=== PATIENT | female | born 1950 | race Hispanic/Latino ===

== ENCOUNTER 2018-08-04 22:52 | Emergency (ER) | payer MEDICARE ==
[2018-08-04] MEDS ORDERED: Sodium Chloride 0.9% 1,000 ML IV STA (23:39)
[2018-08-05 00:11] LABS: VENOUS BLOOD GAS BASE EXCESS 2.7 mmol/L (0.0-2.0); VENOUS BLOOD GAS PCO2 44 mmHg (40-60); VENOUS BLOOD GAS PO2 26 mm/Hg (30-55); VENOUS BLOOD PH 7.41 (7.32-7.43)
[2018-08-05 00:18] LABS: BASO # 0.1 K/uL (0.0-0.2); BASO % 1.3 % (0.0-2.0); EOS # 0.2 K/uL (0.0-0.7); EOS % 2.2 % (0.0-4.0); HEMOGLOBIN 13.1 g/dL (12.0-16.0); LYMPH # 1.7 K/uL (1.0-4.3); LYMPH % 14.9 % (20.0-40.0); MEAN CELL VOLUME 91.3 fl (81.0-99.0); MEAN CORPUSCULAR HEMOGLOBIN 30.5 pg (27.0-31.0); MEAN CORPUSCULAR HGB CONC 33.4 g/dL (33.0-37.0); MEAN PLATELET VOLUME 8.6 fl (7.2-11.7); MONO # 0.8 K/uL (0.0-0.8); MONO % 7.2 % (0.0-10.0); NEUT # 8.4 K/uL (1.8-7.0); NEUT % 74.4 % (50.0-75.0); RBC 4.31 Mil/uL (3.80-5.20); RED CELL DISTRIBUTION WIDTH 13.7 % (11.5-14.5); WHITE BLOOD COUNT 11.3 K/uL (4.8-10.8)
[2018-08-05 00:27] LABS: BLOOD UREA NITROGEN 13 mg/dl (7-17); CALCIUM 9.2 mg/dL (8.4-10.2); GFR NON-AFRICAN AMERICAN > 60
--- NOTE | 2018-08-05 01:32 | ED PDOC ---
History of Present Illness History of Present Illness: 68yo female, with history of hypertension, comes to ER with flu like symptoms. Patient states today she had a fever of 101 and felt dizzy, and also felt her blood pressure "dropping" which she states has happened before. She also reports a sore throat, bodyaches and feels as if the symptoms worsened today. She reports the sore throat has been present for 3 days. No additional complaints. HPI: Influenza Time Seen by Provider: 08/04/18 23:04 Chief Complaint: Flu-like Symptoms Chief Complaint (Provider): Flu like symptoms History Per: Patient Onset/Duration Of Symptoms: Days Symptoms include: fever, bodyaches, sore throat Past Medical History Reviewed: Historical Data, Nursing Documentation, Vital Signs Vital Signs: Last Vital Signs Temp 98.5 F 08/04/18 22:58 Pulse 90 08/04/18 22:58 Resp 20 08/04/18 22:58 BP 110/70 08/04/18 22:58 Pulse Ox 96 08/04/18 22:58 - Medical History PMH: HTN - Surgical History Surgical History: No Surg Hx - Family History Family History: States: No Known Family Hx - Home Medications Home Medications: Ambulatory Orders Medication Instructions Recorded Alprazolam [Xanax] 0.25 mg PO Q8 #6 tab 07/27/15 Enalapril Maleate [Vasotec] 10 mg PO DAILY #30 tab 07/27/15 Oseltamivir Phosphate [Tamiflu] 75 mg PO BID 5 Days #10 capsule 08/05/18 - Allergies Allergies/Adverse Reactions: Allergies Allergy/AdvReac Type Severity Reaction Status Date / Time No Known Allergies Allergy Verified 08/04/18 22:57 Review of Systems ROS Statement: Except As Marked, All Systems Reviewed And Found Negative (as per HPI) Constitutional: Positive for: Fever, Other (bodyaches) ENT: Positive for: Throat Pain Cardiovascular: Negative for: Chest Pain Respiratory: Negative for: Shortness of Breath Neurological: Positive for: Dizziness Physical Exam - Reviewed Nursing Documentation Reviewed: Yes Vital Signs Reviewed: Yes - Physical Exam Appears: Positive for: Non-toxic, No Acute Distress Head Exam: Positive for: ATRAUMATIC, NORMAL INSPECTION, NORMOCEPHALIC Skin: Positive for: Normal Color Eye Exam: Positive for: Normal appearance Neck: Positive for: Normal, Supple Cardiovascular/Chest: Positive for: Regular Rate, Rhythm Respiratory: Positive for: Normal Breath Sounds Gastrointestinal/Abdominal: Positive for: Normal Exam, Soft Back: Positive for: Normal Inspection Extremity: Positive for: Normal ROM Neurologic/Psych: Positive for: Alert, Oriented. Negative for: Motor/Sensory Deficits Medical Decision Making Medical Decision Making: Assessment: Well appearing patient with flu like illness Plan: -- Initiate treatment for flu; Tamiflu 75mg PO -- Labs -- IV Fluids -- Zofran 8mg PO 0311 On reassessment, patient reports marked improvement in symptoms. Patient stable for discharge home, instructed to follow up with PMD in 3-4 days. Scribe Attestation: Documented by Rosalee Alarcon, acting as a scribe for Demetrius Vaz MD. Provider Scribe Attestation: All medical record entries made by the Scribe were at my direction and personally dictated by me. I have reviewed the chart and agree that the record accurately reflects my personal performance of the history, physical exam, medical decision making, and the department course for this patient. I have also personally directed, reviewed, and agree with the discharge instructions and disposition. - Laboratory Results Result Diagrams: 08/05/18 00:15 08/05/18 00:15 - ECG O2 Sat by Pulse Oximetry: 96 Disposition - Clinical Impression Clinical Impression: Influenza - Disposition Referrals: Alecia Garcia MD [Medical Doctor] - Disposition: Routine/Home Disposition Time: 03:13 Condition: IMPROVED Prescriptions: Oseltamivir Phosphate [Tamiflu] 75 mg PO BID 5 Days #10 capsule Instructions: Flu Forms: [employer] ([place])
[2018-08-05 03:30] VITALS: BP 127/80; PULSE 95; RESP 18; TEMP 97.8
[2018-08-05 05:58] VITALS: O2SAT 96
--- NOTE | 2018-08-05 10:04 | RAD ---
Date of service: 08/05/2018 HISTORY: cough, fever COMPARISON: 07/11/2008 TECHNIQUE: Chest PA and lateral FINDINGS: LUNGS: Small abnormal opacity at left lung base just above diaphragm. Possible pneumonia. Follow-up advised. No other abnormal opacity elsewhere. PLEURA: No significant pleural effusion identified. No pneumothorax apparent. CARDIOVASCULAR: No aortic atherosclerotic calcification present. Normal cardiac size. No pulmonary vascular congestion. OSSEOUS STRUCTURES: No significant abnormalities. VISUALIZED UPPER ABDOMEN: Normal. OTHER FINDINGS: None. IMPRESSION: Possible left basilar infiltrate. Follow-up advised
--- NOTE | 2018-08-05 18:46 | CARD ---
APPROVED REPORT Date of service: 08/04/2018 EKG Measurement Heart [id number] <Conclusion> Normal sinus rhythm Normal ECG
== END 2018-08-05 03:25 | disposition home or self-care (01) ==
LOC: H.ER 22:52
DX: J11.1 Influenza due to unidentified influenza virus with other respiratory manifestations (principal); I10 Essential (primary) hypertension
CPT/HCPCS: 71046; 80048; 82803; 82948; 85025; 93005; 99284; J7030